=== PATIENT | female | born 1950 | race African-American/Black ===

== ENCOUNTER 2017-08-20 11:58 | Emergency (ER) | payer OTHER ==
[2017-08-20 13:35] LABS: ALBUMIN 3.1 g/dL (3.4-5.0); ALKALINE PHOSPHATASE 72 U/L (46-116); ALT (SGPT) 36 U/L (10-68); BILIRUBIN - TOTAL 0.45 mg/dL (0.2-1.3); CALC OSMOLALITY 266 mosm/kg (275-300); CALCIUM 8.6 mg/dL (8.5-10.1); CARBON DIOXIDE 26.9 mmol/L (21.0-32.0); CHLORIDE - SERUM 98 mmol/L (98-107); CHOL - HDL RATIO 5.2 ratio (2.3-4.1); CHOLESTEROL, TOTAL 104 mg/dL (0-200); CKMB 3.4 U/L (0.0-3.6); CREATININE - SERUM 1.1 mg/dL (0.6-1.3); GLUCOSE 98 mg/dL (74-106); HDL CHOLESTEROL 20 mg/dL (32-96); LDL CHOLESTEROL 67 mg/dL (0-100); LDL-HDL RATIO 3.4 ratio (1.5-3.5); PRO BNP 80 pg/mL (0-125); PROTEIN - SERUM 7.7 g/dL (6.4-8.2); SODIUM 134 mmol/L (136-145); TRIGLYCERIDE 88 mg/dL (30-200); UREA NITROGEN 11 mg/dL (7-18); eGFR NON AFRICAN AMERICAN 52 mL/min (90-120)
[2017-08-20 13:41] LABS: BASOPHILS 0.6 % (0-2); EOSINOPHILS 0.2 % (0-7); HEMATOCRIT 34.7 % (36.0-48.0); IMMATURE GRANULOCYTES 0.2 % (0-5); LYMPHOCYTES 28.3 % (15-50); MCH 25.2 pg (26.0-34.0); MCHC 31.7 g/dL (31.0-37.0); MCV 79.4 fL (80.0-100.0); MEAN PLATELET VOLUME 9.3 fL (7.4-10.4); MONOCYTES 17.1 % (2-11); NEUTROPHILS 53.6 % (40-80); PLATELET COUNT 355 10x3/uL (130-400); RBC 4.37 10x6/uL (4.00-5.40); RDW 14.2 % (11.5-14.5); WBC 5.4 10x3/uL (4.8-10.8)
[2017-08-20 13:48] LABS: CREATINE KINASE 4257 UL (21-215); LIPASE 2133 U/L (73-393); POTASSIUM - SERUM 2.7 mmol/L (3.5-5.1); TROPONIN-I 0.017 ng/mL (0.000-0.060)
== END 2017-08-20 15:58 | disposition home or self-care (01) ==
LOC: D.ER 11:58
PROVIDERS: Family Medicine
DX: R07.9 Chest pain, unspecified (principal); R74.8 Abnormal levels of other serum enzymes; I44.4 Left anterior fascicular block

== ENCOUNTER 2017-08-24 13:52 | Inpatient (IN) | payer OTHER ==
[2017-08-24 14:18] VITALS: BP 165/53
[2017-08-24 15:24] VITALS: BP 165/53
[2017-08-24] MEDS ORDERED: COZAAR25 MG PO (18:04)
[2017-08-24] MEDS ORDERED: NORMODYNE / TR100 MG PO (18:04)
[2017-08-24] MEDS ORDERED: PREDNISONE5 MG PO (18:05)
[2017-08-24] MEDS ORDERED: CATAPRES0.1 MG PO (18:05)
[2017-08-24] MEDS ORDERED: NITROSTAT0.4 MG SL (18:06)
[2017-08-24 19:41] LABS: CALC OSMOLALITY 275 mosm/kg (275-300); CALCIUM 8.4 mg/dL (8.5-10.1); CARBON DIOXIDE 25.8 mmol/L (21.0-32.0); CHLORIDE - SERUM 104 mmol/L (98-107); CREATININE - SERUM 0.8 mg/dL (0.6-1.3); GLUCOSE 112 mg/dL (74-106); PHOSPHOROUS 2.3 mg/dL (2.5-4.9); POTASSIUM - SERUM 3.7 mmol/L (3.5-5.1); SODIUM 138 mmol/L (136-145); UREA NITROGEN 10 mg/dL (7-18); eGFR NON AFRICAN AMERICAN 76 mL/min (90-120)
[2017-08-24 20:00] VITALS: BP 151/75
[2017-08-24 23:14] LABS: CREATINE KINASE 49201 UL (21-215)
[2017-08-25 04:00] VITALS: BP 150/64
[2017-08-25 07:28] LABS: ALBUMIN 2.4 g/dL (3.4-5.0); CALC OSMOLALITY 276 mosm/kg (275-300); CALCIUM 8.2 mg/dL (8.5-10.1); CARBON DIOXIDE 27.2 mmol/L (21.0-32.0); CHLORIDE - SERUM 106 mmol/L (98-107); CKMB 5.8 U/L (0.0-3.6); CREATININE - SERUM 0.7 mg/dL (0.6-1.3); GLUCOSE 95 mg/dL (74-106); POTASSIUM - SERUM 3.4 mmol/L (3.5-5.1); SODIUM 140 mmol/L (136-145); UREA NITROGEN 8 mg/dL (7-18); eGFR NON AFRICAN AMERICAN 88 mL/min (90-120)
[2017-08-25 07:34] LABS: PHOSPHOROUS 3.6 mg/dL (2.5-4.9)
[2017-08-25 08:51] LABS: CREATINE KINASE 123662 UL (21-215)
[2017-08-25 09:19] VITALS: BP 119/65
[2017-08-25 12:45] VITALS: BP 154/69
[2017-08-25 14:45] VITALS: BP 167/73
[2017-08-25 20:32] LABS: ALBUMIN 2.6 g/dL (3.4-5.0); CALC OSMOLALITY 284 mosm/kg (275-300); CALCIUM 7.8 mg/dL (8.5-10.1); CARBON DIOXIDE 22.1 mmol/L (21.0-32.0); CHLORIDE - SERUM 108 mmol/L (98-107); CREATININE - SERUM 0.9 mg/dL (0.6-1.3); GLUCOSE 180 mg/dL (74-106); PHOSPHOROUS 1.7 mg/dL (2.5-4.9); POTASSIUM - SERUM 3.7 mmol/L (3.5-5.1); SODIUM 141 mmol/L (136-145); UREA NITROGEN 10 mg/dL (7-18); eGFR NON AFRICAN AMERICAN 66 mL/min (90-120)
[2017-08-25 21:08] LABS: CREATINE KINASE 128771 UL (21-215)
[2017-08-25 21:17] LABS: CKMB 5.6 U/L (0.0-3.6)
[2017-08-25 21:18] VITALS: BP 183/67
[2017-08-26] VITALS: BP 180/64
[2017-08-26 04:00] VITALS: BP 142/70
[2017-08-26 08:33] VITALS: BP 154/58
[2017-08-26 11:39] LABS: ALBUMIN 2.6 g/dL (3.4-5.0); CALC OSMOLALITY 286 mosm/kg (275-300); CALCIUM 8.2 mg/dL (8.5-10.1); CARBON DIOXIDE 26.7 mmol/L (21.0-32.0); CHLORIDE - SERUM 109 mmol/L (98-107); CKMB 5.9 U/L (0.0-3.6); CREATININE - SERUM 0.8 mg/dL (0.6-1.3); GLUCOSE 155 mg/dL (74-106); POTASSIUM - SERUM 3.8 mmol/L (3.5-5.1); SODIUM 143 mmol/L (136-145); UREA NITROGEN 11 mg/dL (7-18); eGFR NON AFRICAN AMERICAN 76 mL/min (90-120)
[2017-08-26 11:44] LABS: PHOSPHOROUS 2.4 mg/dL (2.5-4.9)
[2017-08-26 12:02] LABS: CREATINE KINASE 99383 UL (21-215)
[2017-08-26 12:36] VITALS: BP 118/52
[2017-08-26 17:01] VITALS: BP 180/62
[2017-08-26 21:21] VITALS: BP 141/49
[2017-08-27 01:15] VITALS: BP 186/68
[2017-08-27 04:38] VITALS: BP 133/75
[2017-08-27 05:07] LABS: ALBUMIN 2.5 g/dL (3.4-5.0); CALC OSMOLALITY 288 mosm/kg (275-300); CALCIUM 7.8 mg/dL (8.5-10.1); CHLORIDE - SERUM 111 mmol/L (98-107); CKMB 7.6 U/L (0.0-3.6); CREATININE - SERUM 0.8 mg/dL (0.6-1.3); GLUCOSE 137 mg/dL (74-106); PHOSPHOROUS 2.6 mg/dL (2.5-4.9); POTASSIUM - SERUM 3.4 mmol/L (3.5-5.1); SODIUM 144 mmol/L (136-145); UREA NITROGEN 13 mg/dL (7-18); eGFR NON AFRICAN AMERICAN 76 mL/min (90-120)
[2017-08-27 05:10] LABS: CREATINE KINASE 9708 UL (21-215)
[2017-08-27 08:19] VITALS: BP 117/52; BP 130/62
[2017-08-27] MEDS ORDERED: PREDNISONE10 MG PO (10:31)
[2017-08-27 12:54] VITALS: BP 103/61
== END 2017-08-27 15:40 | disposition home or self-care (01) | DRG 558 ==
LOC: D.MS 13:52
PROVIDERS: Internal Medicine Nephrology; Legal Medicine
DX: M62.82 Rhabdomyolysis (principal); I10 Essential (primary) hypertension; K21.9 Gastro-esophageal reflux disease without esophagitis